=== PATIENT | male | born 1980 | race Caucasian/White ===

== ENCOUNTER 2019-12-27 12:19 | Emergency (ER) | payer OTHER ==
[~2019-12-27] VITALS: Ht 172.7 cm; Wt 122.5 kg
[~2019-12-27 12:19] MED LIST: ACETAMINOPHEN-1 EAC1 PO; GENTAMICIN SU3 MG/ML OPHTHALMIC
[2019-12-27] MEDS ORDERED: DOXYCYCLINE 10100 MG PO (12:50)
[2019-12-27] MEDS ORDERED: CENTANY30 GM TOP (12:51)
[2019-12-27 12:55] VITALS: BP 165/80
== END 2019-12-27 12:55 | disposition home or self-care (01) ==
LOC: M.ERS 12:19
DX: L03.116 Cellulitis of left lower limb (principal); I10 Essential (primary) hypertension